=== PATIENT | male | born 1950 | race Caucasian/White ===

== ENCOUNTER 2019-01-29 13:59 | Emergency (ER) | payer BC ==
[~2019-01-29] VITALS: Ht 188 cm; Wt 122.5 kg
[~2019-01-29 13:59] MED LIST: ASPIRIN81 M2 PO; COUMADIN 5 MG TA5 M1 PO; FLECAINIDE ACE100 MG PO; KEFLEX250 MG OR; LOPRESSOR 50 MG50 M1 PO; PERCOCET 5-3251 EACH PO; SYNTHROID150 MCG
[2019-01-29] MEDS ORDERED: ELIQUIS5 MG PO (14:24)
[2019-01-29] MEDS ORDERED: LOPRESSOR100 M1 PO (14:24)
[2019-01-29] MEDS ORDERED: ANDROGEL1.25 GM TOP (14:25)
[2019-01-29] MEDS ORDERED: MAXZIDE-25 MG1 EACH PO (14:25)
[2019-01-29 14:56] LABS: ABSOLUTE NEUTROPHILS 4.8 thou/uL (1.4-8.2); EOSINOPHILS 2.2 % (0.0-3.0); HEMATOCRIT 51.4 % (42.0-52.0); HEMOGLOBIN 17.5 gm/dL (14.0-18.0); LYMPHOCYTES 20.1 % (24.0-44.0); MCH 31.6 pg (26.0-34.0); MONOCYTES 5.9 % (1.0-8.0); PLATELET COUNT 193 thou/uL (150-400); POLYS 70.8 % (36.0-66.0); RBC 5.53 mil/uL (4.50-6.00); RDW 14.1 % (10.5-14.5); WBC 6.8 thou/uL (4.0-11.0)
[2019-01-29 15:00] LABS: ANION GAP 8 mmol/L (7-16); BUN 17 mg/dL (7-18); CALCIUM 8.9 mg/dL (8.5-10.1); CHLORIDE 107 mmol/L (98-107); CO2 26 mmol/L (21-32); CREATININE 1.2 mg/dL (0.7-1.3); GLUCOSE 137 mg/dL (74-106); SODIUM 141 mmol/L (136-145)
[2019-01-29 15:10] LABS: ALBUMIN 3.5 g/dL (3.4-5.0); MAGNESIUM 2.4 mg/dL (1.8-2.4); SGOT 21 U/L (15-37); SGPT 23 U/L (30-65); TOTAL BILIRUBIN 0.7 mg/dL (<0.1-1.0); TOTAL PROTEIN 6.9 g/dL (6.4-8.2); TROPONIN-I <0.06 ng/mL (<0.06)
[2019-01-29 16:40] VITALS: BP 132/79
--- NOTE | 2019-01-29 19:55 | EKG ---
[address] [place] [address] ELECTROCARDIOGRAM REPORT Name: MANNIE CROSS Room #: [facility]#: [id number] ������������������ Admission: 01/29/19 ������������������ Attend Phys: Discharge: 01/29/19 ������������������ Date of : 50 Report #: [id number] ����������������������������������������������������������������� [id number] THIS REPORT FOR: //name// [facility] ED Test Date: 2019-01-29 Test Time: 14:10:49 Pat Name: MANNIE CROSS Department: Room: Gender: M [employer]: : 1950 Requested By: Cheng Vazquez Order Number: [id number] MD: Waylon Beck Measurements Intervals [place] Rate: 61 P: NE: QRS: -117 QRSD: 166 T: 30 QT: 474 QTc: 478 Interpretive Statements Sinus rhythm First degree AV block Right bundle branch block Compared to ECG 04/05/2012 11:06:37 Electronically Signed On 01-29-2019 19:55:48 CDT by Waylon Beck [email or web address] ��������������������������������������������� <ELECTRONICALLY SIGNED> ���������������������������������������� By: Waylon Beck MD ��������������������������������������������� 01/29/191954 1410 1410 Waylon Beck MD /TAY
== END 2019-01-29 17:10 | disposition home or self-care (01) ==
LOC: ER 13:59
PROVIDERS: Emergency Medicine
DX: R42 Dizziness and giddiness (principal); Z98.890 Other specified postprocedural states; Z95.0 Presence of cardiac pacemaker

== ENCOUNTER → 2019-12-25 | Outpatient (CLI) | payer BC ==
[~2019-12-25] MED LIST changes: +ANDROGEL1.25 GM TOP; +ELIQUIS5 MG PO; +LOPRESSOR100 M1 PO; +MAXZIDE-25 MG1 EACH PO
== END ==
LOC: SJCVCIMAG 08:28
PROVIDERS: ATTEND Internal Medicine Cardiovascular Disease
DX: I08.1 Rheumatic disorders of both mitral and tricuspid valves (principal); I25.10 Atherosclerotic heart disease of native coronary artery without angina pectoris; I48.0 Paroxysmal atrial fibrillation; E78.00 Pure hypercholesterolemia, unspecified; I10 Essential (primary) hypertension; Z79.82 Long term (current) use of aspirin; Z95.0 Presence of cardiac pacemaker

== ENCOUNTER → 2021-01-15 | Outpatient (CLI) | payer OTHER | LOC: SJCVCIMAG 08:21 | PROVIDERS: ATTEND Internal Medicine Cardiovascular Disease | DX: I49.3 Ventricular premature depolarization (principal); I25.10 Atherosclerotic heart disease of native coronary artery without angina pectoris; I48.0 Paroxysmal atrial fibrillation; I10 Essential (primary) hypertension; R60.9 Edema, unspecified; E78.00 Pure hypercholesterolemia, unspecified; E03.9 Hypothyroidism, unspecified; M19.90 Unspecified osteoarthritis, unspecified site; Z98.890 Other specified postprocedural states; Z95.0 Presence of cardiac pacemaker; Z79.899 Other long term (current) drug therapy ==